=== PATIENT | male | born 1965 | race Caucasian/White ===

== ENCOUNTER 2016-12-16 17:12 | Emergency (ER) | payer OTHER ==
[~2016-12-16] VITALS: Ht 172.7 cm; Wt 90.7 kg
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
[2016-12-16 17:18] VITALS: BP 144/90
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
[2016-12-16] MEDS ORDERED: PERCOCET 5-3251 EACH PO (18:58)
[2016-12-16] MEDS ORDERED: CYCLOBENZAPRINE10 M1 PO (18:58)
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
== END 2016-12-16 19:00 ==
LOC: ERH 17:12
DX: S06.0X0A Concussion without loss of consciousness, initial encounter (principal); S16.1XXA Strain of muscle, fascia and tendon at neck level, initial encounter; R07.89 Other chest pain; V43.52XA Car driver injured in collision with other type car in traffic accident, initial encounter; Y93.9 Activity, unspecified; Y92.9 Unspecified place or not applicable
CPT/HCPCS: 96372